=== PATIENT | female | born 1990 | race Caucasian/White ===

== ENCOUNTER 2016-03-04 17:02 | Emergency (ER) | payer OTHER ==
[2016-03-04 17:09] VITALS: BP 128/59; PULSE 89; RESP 18; TEMP 98
--- NOTE | 2016-03-04 17:30 | ED ---
General Adult HPI - General Chief complaint: Urogenital Stated complaint: abdominal pain, hematuria Time Seen by Provider: 03/04/16 17:13 Source: patient, RN notes reviewed Mode of arrival: ambulatory Limitations: no limitations - History of Present Illness Initial comments: Patient 25-year-old female who presents emergency room today with a chief complaint of dysuria over the last week. She does admit to increased urinary frequency with burning sensation. Patient admits to some lower abdominal pain radiating to the back at times. Does admit that the symptoms are consistent with urinary tract infection that she had in the past. Does admit that she's tried some home remedies with little relief. States she was waiting for insurance to kick in. Patient denies any other complaints or associated symptoms. Patient denies any recent fever, chills, shortness of breath, chest pain, nausea or vomiting, numbness or tingling, constipation or diarrhea, headaches or visual changes, or any other complaints. - Related Data Previous Rx's Medication Instructions Recorded Ciprofloxacin HCl [Cipro] 500 mg PO Q12HR #20 day 03/04/16 Phenazopyridine [Pyridium] 100 mg PO TID 3 Days 03/04/16 Allergies Allergy/AdvReac Type Severity Reaction Status Date / Time No Known Allergies Allergy Verified 03/04/16 17:34 Review of Systems ROS Statement: Those systems with pertinent positive or pertinent negative responses have been documented in the HPI. ROS Other: All systems not noted in ROS Statement are negative. Past Medical History Past Medical History: No Reported History History of Any Multi-Drug Resistant Organisms: None Reported Past Surgical History: No Surgical Hx Reported Past Psychological History: No Psychological Hx Reported Smoking Status: Current every day smoker Past Alcohol Use History: None Reported Past Drug Use History: None Reported General Exam - General Exam Comments Initial Comments: General: The patient is awake and alert, in no distress, and does not appear acutely ill. Eye: Pupils are equal, round and reactive to light, extra-ocular movements are intact. No nystagmus. There is normal conjunctiva bilaterally. No signs of icterus. Ears, nose, mouth and throat: There are moist mucous membranes and no oral lesions. Neck: The neck is supple, there is no tenderness or JVD. Cardiovascular: There is a regular rate and rhythm. No murmur, rub or gallop is appreciated. Respiratory: Lungs are clear to auscultation, respirations are non-labored, breath sounds are equal. No wheezes, stridor, rales, or rhonchi. Gastrointestinal: Soft, non-distended, non-tender abdomen without masses or organomegaly noted. There is no rebound or guarding present. No CVA tenderness. Bowel sounds are unremarkable. Musculoskeletal: Normal ROM, no tenderness. Strength 5/5. Sensation intact. Pulses equal bilaterally 2+. Neurological: A&O x 3. CN II-XII intact, There are no obvious motor or sensory deficits. Coordination appears grossly intact. Speech is normal. Skin: Skin is warm and dry and no rashes or lesions are noted. Psychiatric: Cooperative, appropriate mood & affect, normal judgment. Limitations: no limitations External exam: Present: normal external exam ([employer] Roman present for exam.) Speculum exam: Present: normal speculum exam Course Vital Signs 03/04/16 17:06 Temperature 98.0 F Pulse Rate 89 Respiratory 18 Rate Blood Pressure 128/59 O2 Sat by Pulse 98 Oximetry Medical Decision Making - Medical Decision Making Patient's urinalysis reviewed and does show evidence of a urinary tract infection. Was discussed with patient. She does admit that she's recently back together with her boyfriend. She states other people she is worried about possible STDs. Patient does admit to some mild vaginal discharge. Clear color. She denies any other complaints or symptoms. She states she would like to be treated prophylactically for the STDs. She be given a gram or Rocephin to help treat for urinary tract infection along with a gram of azithromycin. Patient's cultures are pending. She'll be discharged home on antibiotics of ciprofloxacin along with a prescription for by radi for her symptoms. Advised follow-up family doctor for repeat urinalysis. Advised return to emergency room if any symptoms increase or worsen. Patient states understanding and is in agreement. - Lab Data Lab Results 03/04/16 03/04/16 Range/Units 17:09 17:09 Urine Color Yellow Urine Appearance Cloudy H (Clear) Urine pH 5.5 (5.0-8.0) Ur Specific [place] 1.013 (1.001-1.035) Urine Protein Negative (Negative) Urine Glucose (UA) Negative (Negative) Urine Ketones Negative (Negative) Urine Blood Small H (Negative) Urine Nitrate Negative (Negative) Urine Bilirubin Negative (Negative) Urine Urobilinogen <2.0 (<2.0) mg/dL Ur Leukocyte Esterase Large H (Negative) Urine RBC 176 H (0-5) /hpf Urine WBC >182 H (0-5) /hpf Ur Squamous Epith Cells <1 (0-4) /hpf Urine Bacteria Many H (None) /hpf Urine Mucus Rare H (None) /hpf Urine HCG, Qual Not Detected (Not Detectd) Disposition Clinical Impression: Urinary tract infection, Concern about STD in female without diagnosis Disposition: HOME SELF-CARE Condition: Good Instructions: Urinary Tract Infection in Women (ED) Additional Instructions: Please use medication as discussed. Please follow-up with family doctor in the next 2 to 5 days and have repeat urinalysis performed. Please return to emergency room if the symptoms increase or worsen or for any other concerns. Prescriptions: Ciprofloxacin HCl [Cipro] 500 mg PO Q12HR #20 day Phenazopyridine [Pyridium] 100 mg PO TID 3 Days Referrals: None,Stated [Primary Care Provider] - 1-2 days Nazario Abrahma MD [STAFF PHYSICIAN] - 1-2 days Time of Disposition: 18:06
[2016-03-04 17:43] LABS: Appearance,Urine Cloudy (Clear); Bacteria,Urine Many /hpf; Bilirubin,Urine Negative (Negative); Glucose,Urine (UA) Negative (Negative); Ketones,Urine Negative (Negative); Leukocyte Esterase,Urine Large (Negative); Mucus,Urine Rare /hpf; Nitrite,Urine Negative (Negative); PH, Urine 5.5 (5.0-8.0); Particle Count 3882; Protein,Urine Negative (Negative); RBC,Urine 176 /hpf (0-5); Specific Gravity,Urine 1.013 (1.001-1.035); Squamous Epithelial Cell,Urine <1 /hpf (0-4); UA Billing (MACRO vs. MICRO) MICRO; Urobilinogen,Urine <2.0 mg/dL (<2.0); WBC,Urine >182 /hpf (0-5)
[2016-03-04] MEDS ORDERED: cefTRIAXone 1,000 MG VIAL (IM USE) IM STA (18:03)
[2016-03-04] MEDS ORDERED: AZITHROMYCIN 500 MG TAB PO STA (18:04)
[2016-03-08 09:57] LABS: Chlamydia/GC Source Vaginal
== END 2016-03-04 18:37 | disposition home or self-care (01) ==
LOC: EC 17:02
DX: N39.0 Urinary tract infection, site not specified (principal); F17.200 Nicotine dependence, unspecified, uncomplicated
CPT/HCPCS: 99284 ×2; 96372 ×2; 87591; 87491; 81001; 81025; 87808; 87070; 87086; J0696; 87205